=== PATIENT | female | born 1940 | race Hispanic/Latino ===

== ENCOUNTER 2020-08-22 20:22 | Inpatient (IN) | payer MEDICARE ==
[2020-08-22] MEDS ORDERED: NITROGLYCERIN 50MG/D5W 250ML 1 BOT ONE (20:25)
[2020-08-22] MEDS ORDERED: MORPHINE 2 MG SYG ONE (20:26)
[2020-08-22] MEDS ORDERED: HEPARIN 5,000 UNIT VIAL ONE (20:32)
[2020-08-22] MEDS ORDERED: TICAGRELOR 90 MG TABLET ONE (20:33)
[2020-08-22] MEDS ORDERED: ONDANSETRON 4MG INJ ONE (20:40)
[2020-08-22 20:42] LABS: BASOPHILS % (AUTO) 0.4 % (0.0-5.0); EOSINOPHILS % (AUTO) 2.7 % (0.0-8.0); HEMATOCRIT 40.1 % (36-48); LYMPHOCYTES % (AUTO) 23.7 % (21.0-51.0); MEAN CORPUSCULAR HEMOGLOBIN 24.9 pg (27.0-33.0); MEAN CORPUSCULAR HGB CONC 30.7 g/dL (32.0-36.0); MEAN CORPUSCULAR VOLUME 81.2 fL (79-99); MONOCYTES % (AUTO) 7.4 % (3.0-13.0); NEUTROPHILS % (AUTO) 65.7 % (40.0-77.0); PLATELET COUNT (AUTO) 280 K/uL (130-400); RED BLOOD CELL COUNT(AUTO) 4.94 MIL/uL (4.00-5.50); RED CELL DISTRIBUTION WIDTH 14.9 % (11.0-15.5); WHITE BLOOD COUNT (AUTO) 9.5 K/uL (4.8-10.8)
[2020-08-22 20:53] LABS: CREATININE 0.9 mg/dL (0.5-1.5); POTASSIUM 3.1 mmol/L (3.5-5.1)
[2020-08-22] MEDS ORDERED: NITROGLYCERIN 2 MG VIAL IV ONE (20:53)
[2020-08-22] MEDS ORDERED: HEPARIN 10,000 UNIT/10ML (1,000 UNIT/ML) VIAL ONE (20:53)
[2020-08-22] MEDS ORDERED: MIDAZOLAM HCL 1 MG/ML 2ML VIAL ONE (20:53)
[2020-08-22] MEDS ORDERED: IOHEXOL 350 MG/ML 100ML INFUS..BTL IV ONE (20:53)
[2020-08-22] MEDS ORDERED: LIDOCAINE HCL 400MG/20ML VIAL ONE (20:53)
[2020-08-22] MEDS ORDERED: FENTANYL CITRATE PF 50 MCG/1 ML 2ML VIAL ONE (20:54)
[2020-08-22 20:57] LABS: ALBUMIN 3.2 g/dL (3.5-5.0); BILIRUBIN,TOTAL 0.3 mg/dL (0.2-1.0); TOTAL PROTEIN, SERUM 7.1 g/dL (6.0-8.3)
[2020-08-22] MEDS ORDERED: LABETALOL 20MG VIAL IV ONE (21:37)
[2020-08-22] MEDS ORDERED: ONDANSETRON 4MG INJ IV PRN (22:30)
[2020-08-22] MEDS ORDERED: ACETAMINOPHEN 325 MG TAB PO PRN ×2 (22:30)
[2020-08-22 23:00] VITALS: BP 133/77
[2020-08-22 23:15] VITALS: BP 133/76
[2020-08-22 23:30] VITALS: BP 128/69
[2020-08-22 23:45] VITALS: BP 120/63
[2020-08-23] VITALS (14 sets, daily range): BP systolic 97–135; BP diastolic 49–72
[2020-08-23 04:00] LABS: HEMATOCRIT 32.7 % (36-48); MEAN CORPUSCULAR HEMOGLOBIN 25.4 pg (27.0-33.0); MEAN CORPUSCULAR HGB CONC 31.2 g/dL (32.0-36.0); MEAN CORPUSCULAR VOLUME 81.5 fL (79-99); RED BLOOD CELL COUNT(AUTO) 4.01 MIL/uL (4.00-5.50); WHITE BLOOD COUNT (AUTO) 8.6 K/uL (4.8-10.8)
[2020-08-23 04:32] LABS: CREATININE 0.8 mg/dL (0.5-1.5); POTASSIUM 3.6 mmol/L (3.5-5.1)
[2020-08-23 05:36] LABS: TROPONIN I 10.82 ng/mL (0.00-0.06)
[2020-08-23] MEDS: FAMOTIDINE 20MG VIAL IV SCH ×2 (08:47→21:01)
[2020-08-23] MEDS: ASPIRIN 81MG CHEW TAB PO SCH (08:47)
[2020-08-23] MEDS: METOPROLOL TARTRATE 25 MG TAB PO SCH ×2 (08:47→21:00)
[2020-08-23] MEDS: LOSARTAN 50 MG TABLET PO SCH (08:47)
[2020-08-23] MEDS: TICAGRELOR 90 MG TABLET PO SCH ×2 (08:47→21:00)
[2020-08-23] MEDS ORDERED: ATORVASTATIN 20 MG TABLET PO SCH (21:00)
[2020-08-24 00:12] VITALS: BP 116/59
[2020-08-24 04:16] VITALS: BP 113/60
[2020-08-24 08:04] VITALS: BP 128/55
[2020-08-24] MEDS: ASPIRIN 81MG CHEW TAB PO SCH (08:42)
[2020-08-24] MEDS: TICAGRELOR 90 MG TABLET PO SCH (08:42)
[2020-08-24] MEDS: METOPROLOL TARTRATE 25 MG TAB PO SCH (08:42)
[2020-08-24] MEDS: LOSARTAN 50 MG TABLET PO SCH (08:43)
[2020-08-24] MEDS: FAMOTIDINE 20MG VIAL IV SCH (08:43)
[2020-08-24] MEDS ORDERED: METO25TA6 PO (11:00)
[2020-08-24] MEDS ORDERED: ASPI-1197 PO (11:00)
[2020-08-24] MEDS ORDERED: LOSA25TA41 PO (11:00)
[2020-08-24] MEDS ORDERED: ATOR40TA69 PO (11:00)
[2020-08-24 11:06] VITALS: BP 106/61
== END 2020-08-24 15:30 | disposition home or self-care (01) | DRG 246 ==
LOC: EDH 20:22 → EDHIP 20:28 → 4CH 22:54
PROVIDERS: ADMIT Internal Medicine; ATTEND Internal Medicine
PROC: 027034Z Dilation of Coronary Artery, One Artery with Drug-eluting Intraluminal Device, Percutaneous Approach (ICD-10-PCS; principal; 2020-08-22)
PROC: 4A023N7 Measurement of Cardiac Sampling and Pressure, Left Heart, Percutaneous Approach (ICD-10-PCS; 2020-08-22)
PROC: B2111ZZ Fluoroscopy of Multiple Coronary Arteries using Low Osmolar Contrast (ICD-10-PCS; 2020-08-22)
PROC: B41F1ZZ Fluoroscopy of Right Lower Extremity Arteries using Low Osmolar Contrast (ICD-10-PCS; 2020-08-22)
DX: I21.19 ST elevation (STEMI) myocardial infarction involving other coronary artery of inferior wall (principal); I50.33 Acute on chronic diastolic (congestive) heart failure; E78.5 Hyperlipidemia, unspecified; F02.80 Dementia in other diseases classified elsewhere, unspecified severity, without behavioral disturbance, psychotic disturbance, mood disturbance, and anxiety; G30.9 Alzheimer's disease, unspecified; Z20.822 Contact with and (suspected) exposure to COVID-19; I25.10 Atherosclerotic heart disease of native coronary artery without angina pectoris; Z83.3 Family history of diabetes mellitus; Z82.49 Family history of ischemic heart disease and other diseases of the circulatory system; I11.0 Hypertensive heart disease with heart failure
CPT/HCPCS: 36415; 71045; 80048; 80053; 80061; 82550; 83874; 84484; 85025; 85027; 85347; 93005; 93306; 93356; 93454; 99156; 99157; 99291; C1887; C1894; C9600; G0378; J1644; J2250; J2405; J3010; J3490; Q9967; U0003